=== PATIENT | female | born 1995 ===

== ENCOUNTER 2020-06-12 12:59 | Outpatient (REF) | payer SELFPAY ==
[2020-06-14 21:31] LABS: SARS-CoV-2 RNA Undetected (Undetected); SARS-CoV-2 Specimen Source Nasopharynx
== END 2020-06-12 13:19 ==
LOC: NCHCN 12:59
PROVIDERS: Visit Provider Nurse Practitioner Family
DX: Z20.828 Contact with and (suspected) exposure to other viral communicable diseases (principal)
CPT/HCPCS: U0003

== ENCOUNTER 2021-03-26 16:15 | Outpatient (REF) | payer BC, SELFPAY ==
[2021-03-28 13:51] LABS: COVID-19 RT-PCR UVMMC Result Negative (Negative)
== END 2021-03-26 16:16 | disposition home or self-care (01) ==
LOC: LBO 16:15
PROVIDERS: Visit Provider Physician Assistant
DX: J02.9 Acute pharyngitis, unspecified (principal); Z20.822 Contact with and (suspected) exposure to COVID-19; J09.X2 Influenza due to identified novel influenza A virus with other respiratory manifestations
CPT/HCPCS: U0003; 87070